=== PATIENT | male | born 1990 | race Caucasian/White ===

== ENCOUNTER 2016-12-22 14:49 | Emergency (ER) | payer SELFPAY ==
[~2016-12-22] VITALS: Wt 63.5 kg
[~2016-12-22 14:49] MED LIST: PREDNISONE10 MG PO; VICODIN 5/500 505 MG PO
[2016-12-22] MEDS ORDERED: PREDNISONE10 MG PO (15:17)
== END 2016-12-22 15:57 | disposition home or self-care (01) ==
LOC: ED 14:49
DX: L23.7 Allergic contact dermatitis due to plants, except food (principal)

== ENCOUNTER 2022-03-08 22:11 | Emergency (ER) | payer MEDICAID ==
[~2022-03-08] VITALS: Ht 177.8 cm; Wt 68.0 kg
== END 2022-03-08 23:06 | disposition home or self-care (01) ==
LOC: ED 22:11
DX: R55 Syncope and collapse (principal)